=== PATIENT | male | born 1975 | race Caucasian/White ===

== ENCOUNTER 2020-06-12 00:30 | Emergency (ER) | payer SELFPAY ==
[~2020-06-12] VITALS: Ht 188 cm; Wt 102.0 kg
[2020-06-12] MEDS ORDERED: ONDANSETRON 2MG/ML, 2ML ONE (01:45)
[2020-06-12] MEDS ORDERED: MORPHINE SULFATE 4 MG/ML, 1ML ONE ×2 (01:45→02:44)
[2020-06-12] MEDS ORDERED: ONDANSETRON 2MG/ML, 2ML IVPush ONE (02:00)
[2020-06-12] MEDS: MORPHINE SULFATE 4 MG/ML, 1ML IVPush PRN ×2 (02:03→02:47)
--- NOTE | 2020-06-12 02:57 | NUR ---
BREAK RN: PATIENT APPROVED BY PROVIDER TO GET SECOND DOSAGE OF MORPHINE. PATIENT VERBALIZED UNDERSTANDING. PATIENT'S PORTER MARINA WITH HIM. PATIENT VERBALIZED UNDERSTANDING OF SELF CARE AND AT HOME CARE WITH PRESCRIPTIONS. PATIENT TOLERATED DOSAGE OF MEDICATION WELL. VITAL SIGNS STABLE. WILL WAIT PRIOR TO DISCHARGE R/T MEDICATION DOSAGE.
[2020-06-12 03:13] VITALS: BP 132/70
== END 2020-06-12 03:15 | disposition home or self-care (01) ==
LOC: ED 01:00
DX: S52.271A Monteggia's fracture of right ulna, initial encounter for closed fracture (principal); V87.8XXA Person injured in other specified noncollision transport accidents involving motor vehicle (traffic), initial encounter; Y93.89 Activity, other specified; Y92.410 Unspecified street and highway as the place of occurrence of the external cause; Y99.8 Other external cause status
CPT/HCPCS: 96374; 96375; 96376; 99284; J2270; J2405